=== PATIENT | female | born 1985 | race Caucasian/White ===

== ENCOUNTER → 2016-05-02 | Outpatient (REF) | payer OTHER | LOC: M SFHCWAGY 08:42 | PROVIDERS: ATTEND Nurse Practitioner Women's Health | DX: Z12.4 Encounter for screening for malignant neoplasm of cervix (principal) ==

== ENCOUNTER → 2016-05-15 | Outpatient (REF) | payer OTHER | LOC: M LAB REF 16:26 | PROVIDERS: ATTEND Nurse Practitioner Adult Health | DX: Z11.59 Encounter for screening for other viral diseases (principal) ==

== ENCOUNTER → 2017-01-24 | Outpatient (REF) | payer OTHER | LOC: M LAB REF 13:55 | PROVIDERS: ATTEND Nurse Practitioner Adult Health | DX: Z02.1 Encounter for pre-employment examination (principal) ==

== ENCOUNTER → 2017-02-11 | Outpatient (REF) | payer OTHER ==
[2017-02-11 14:17] LABS: CONTROL LINE HPYORI INT CTR LINE PRESENT
== END ==
LOC: M LAB REF 12:53
PROVIDERS: ATTEND Nurse Practitioner Adult Health
DX: K21.9 Gastro-esophageal reflux disease without esophagitis (principal)

== ENCOUNTER → 2017-10-09 | Outpatient (REF) | payer OTHER ==
[2017-10-10 04:15] LABS: CONTROL LINE HPYORI INT CTR LINE PRESENT; H PYLORI QUALITATIVE IgG NEGATIVE (NEGATIVE)
== END ==
LOC: M LAB REF 18:43
DX: K21.9 Gastro-esophageal reflux disease without esophagitis (principal)
CPT/HCPCS: 86677

== ENCOUNTER → 2018-07-31 | Outpatient (REF) | payer OTHER | LOC: M SFHCWAGY 10:28 | PROVIDERS: ATTEND Nurse Practitioner Women's Health | DX: Z12.4 Encounter for screening for malignant neoplasm of cervix (principal) ==

== ENCOUNTER → 2019-04-08 | Outpatient (REF) | payer OTHER ==
[2019-04-10 10:19] LABS: THRYOGLOBULIN ANTIBODIES (ATA) < 1.0 IU/mL (0.0-0.9); THYROGLOBULIN QUANTITATIVE 4.6 ng/mL (1.5-38.5)
== END ==
LOC: M LAB REF 16:38
PROVIDERS: ATTEND Nurse Practitioner Adult Health
DX: E89.0 Postprocedural hypothyroidism (principal)

== ENCOUNTER → 2021-01-11 | Outpatient (REF) | payer OTHER | LOC: M SFHCWAGY 13:20 | PROVIDERS: ATTEND Nurse Practitioner Women's Health | DX: Z12.4 Encounter for screening for malignant neoplasm of cervix (principal); N76.0 Acute vaginitis; B96.89 Other specified bacterial agents as the cause of diseases classified elsewhere | CPT/HCPCS: 87624; G0123 ==

== ENCOUNTER → 2022-06-12 | Outpatient (REF) | payer OTHER | LOC: M LAB REF 16:23 | PROVIDERS: ATTEND Nurse Practitioner Adult Health | DX: E89.0 Postprocedural hypothyroidism (principal) ==

== ENCOUNTER → 2022-07-13 | Outpatient (REF) | payer OTHER | LOC: M LAB REF 16:26 | PROVIDERS: ATTEND Surgery | DX: L72.3 Sebaceous cyst (principal) ==

== ENCOUNTER → 2022-08-29 | Outpatient (REF) | LOC: M EMP 11:13 | PROVIDERS: ATTEND Family Medicine | DX: Z11.52 Encounter for screening for COVID-19 (principal) ==

== ENCOUNTER → 2022-09-04 | Outpatient (REF) | LOC: M EMP 08:23 | PROVIDERS: ATTEND Family Medicine | DX: Z20.822 Contact with and (suspected) exposure to COVID-19 (principal) ==

== ENCOUNTER → 2023-01-11 | Outpatient (CLI) | payer BC ==
[2023-01-11 11:01] LABS: ESTRADIOL 143.8 PG/ML; PROGESTERONE 33.3 NG/ML
== END ==
LOC: M LAB 09:46
PROVIDERS: ATTEND Obstetrics & Gynecology Reproductive Endocrinology
DX: Z31.49 Encounter for other procreative investigation and testing (principal)

== ENCOUNTER → 2023-01-16 | Outpatient (CLI) | payer BC ==
[2023-01-16 09:05] LABS: HCG, SERUM QUANTITATIVE 7.5 MIU/ML (<4.2)
[2023-01-16 09:09] LABS: PROGESTERONE 40.99 NG/ML
== END ==
LOC: M LAB 08:14
PROVIDERS: ATTEND Obstetrics & Gynecology Reproductive Endocrinology
DX: Z32.00 Encounter for pregnancy test, result unknown (principal)

== ENCOUNTER → 2023-01-18 | Outpatient (CLI) | payer BC ==
[2023-01-18 09:56] LABS: HCG, SERUM QUANTITATIVE 18.9 MIU/ML (<4.2)
[2023-01-18 10:00] LABS: ESTRADIOL 141.9 PG/ML; PROGESTERONE 37.47 NG/ML; THYROID STIMULATING HORMONE 10.63 uIU/ML (0.55-4.78)
== END ==
LOC: M LAB 08:18
PROVIDERS: ATTEND Obstetrics & Gynecology Reproductive Endocrinology
DX: Z32.01 Encounter for pregnancy test, result positive (principal)

== ENCOUNTER → 2023-01-21 | Outpatient (CLI) | payer BC ==
[2023-01-21 10:25] LABS: HCG, SERUM QUANTITATIVE 47.2 MIU/ML (<4.2)
[2023-01-21 10:31] LABS: ESTRADIOL 109.6 PG/ML; PROGESTERONE 39.28 NG/ML
== END ==
LOC: M LAB 08:29
PROVIDERS: ATTEND Obstetrics & Gynecology Reproductive Endocrinology
DX: Z32.01 Encounter for pregnancy test, result positive (principal)

== ENCOUNTER → 2023-01-25 | Outpatient (CLI) | payer BC ==
[2023-01-25 10:23] LABS: ESTRADIOL 141.4 PG/ML
[2023-01-25 10:24] LABS: PROGESTERONE 33.71 NG/ML
== END ==
LOC: M LAB 09:11
PROVIDERS: ATTEND Obstetrics & Gynecology Reproductive Endocrinology
DX: O09.00 Supervision of pregnancy with history of infertility, unspecified trimester (principal)

== ENCOUNTER → 2023-01-28 | Outpatient (CLI) | payer BC ==
[2023-01-28 09:58] LABS: HCG, SERUM QUANTITATIVE 432.7 MIU/ML (<4.2)
[2023-01-28 10:02] LABS: ESTRADIOL 167.5 PG/ML
[2023-01-28 10:03] LABS: PROGESTERONE 35.8 NG/ML
== END ==
LOC: M LAB 08:24
PROVIDERS: ATTEND Obstetrics & Gynecology Reproductive Endocrinology
DX: Z32.01 Encounter for pregnancy test, result positive (principal)

== ENCOUNTER → 2023-02-20 | Outpatient (CLI) | payer BC | LOC: M LAB 11:52 | PROVIDERS: ATTEND Nurse Practitioner Adult Health | DX: E89.0 Postprocedural hypothyroidism (principal) ==

== ENCOUNTER → 2023-02-20 | Outpatient (CLI) | payer BC | LOC: M LAB 11:50 | PROVIDERS: ATTEND Obstetrics & Gynecology Reproductive Endocrinology | DX: Z32.01 Encounter for pregnancy test, result positive (principal) ==

== ENCOUNTER → 2023-02-27 | Outpatient (CLI) | payer BC | LOC: M LAB 12:06 | PROVIDERS: ATTEND Obstetrics & Gynecology Reproductive Endocrinology | DX: O02.1 Missed abortion (principal) ==

== ENCOUNTER → 2023-03-06 | Outpatient (CLI) | payer BC | LOC: M LAB 09:04 | PROVIDERS: ATTEND Obstetrics & Gynecology Reproductive Endocrinology | DX: O02.1 Missed abortion (principal) ==

== ENCOUNTER → 2023-03-22 | Outpatient (CLI) | payer BC | LOC: M LAB 06:38 | PROVIDERS: ATTEND Obstetrics & Gynecology Reproductive Endocrinology | DX: O02.1 Missed abortion (principal) ==

== ENCOUNTER → 2023-03-29 | Outpatient (CLI) | payer BC | LOC: M LAB 11:20 | PROVIDERS: ATTEND Obstetrics & Gynecology Reproductive Endocrinology | DX: O02.1 Missed abortion (principal) ==

== ENCOUNTER → 2023-04-08 | Outpatient (CLI) | payer BC | LOC: M LAB 13:59 | PROVIDERS: ATTEND Obstetrics & Gynecology Reproductive Endocrinology | DX: O02.1 Missed abortion (principal) ==

== ENCOUNTER → 2023-06-18 | Outpatient (CLI) | payer BC | LOC: M LAB 13:34 | PROVIDERS: ATTEND Nurse Practitioner Adult Health | DX: E89.0 Postprocedural hypothyroidism (principal) ==

== ENCOUNTER 2023-06-23 09:34 | Emergency (ER) | payer BC ==
[~2023-06-23] VITALS: Ht 162.6 cm; Wt 86.4 kg
[2023-06-23] MEDS ORDERED: LEVO175T2 PO (09:55)
[2023-06-23 10:54] LABS: BASO % 0.4 % (0.0-1.0); EOS # 0.1 10^3/uL (0.0-0.5); EOS % 0.7 % (0.0-3.0); HEMATOCRIT 40.8 % (36.0-47.0); HEMOGLOBIN 13.4 g/dl (12.0-15.5); LYMPH # 2.4 10^3/uL (1.5-5.0); LYMPH % 23.3 % (24.0-44.0); MEAN CORPUSCULAR HGB CONC 32.8 g/dl (32.0-36.5); MEAN CORPUSCULAR VOLUME 82.1 fl (80.0-96.0); MONO # 0.5 10^3/uL (0.0-0.8); MONO % 5.1 % (2.0-8.0); NEUTROPHILS # 7.3 10^3/uL (1.5-8.5); NEUTROPHILS % 70.2 % (36.0-66.0); PLATELET COUNT, AUTOMATED 379 10^3/uL (150-450); RED BLOOD COUNT 4.97 10^6/uL (4.00-5.40); WHITE BLOOD COUNT 10.4 10^3/uL (4.0-10.0)
[2023-06-23 10:58] LABS: ERYTHROCYTE SEDIMENTATION RATE 56 mm/hr (0-20)
[2023-06-23 11:04] LABS: INR 1.05; PARTIAL THROMBOPLASTIN TIME 30.9 SECONDS (24.8-34.2); PROTHROMBIN TIME 13.4 SECONDS (12.5-14.5)
[2023-06-23 11:18] LABS: CK-MB VALUE MASS < 1.0 NG/ML (<3.6); LIPASE 43 U/L (12-53)
[2023-06-23 11:20] LABS: ALKALINE PHOSPHATASE 75 U/L (46-116); ALT/SGPT 24 U/L (7.0-40); AST/SGOT 13 U/L (<34); BILIRUBIN,DIRECT 0.2 MG/DL (<0.4); BILIRUBIN,TOTAL 0.5 MG/DL (0.3-1.2); BLOOD UREA NITROGEN 10 MG/DL (9-23); CALCIUM LEVEL 9.4 MG/DL (8.5-10.1); CARBON DIOXIDE LEVEL 28 MMOL/L (20-31); CHLORIDE LEVEL 105 MMOL/L (98-107); CPK CREATINE PHOSPHOKINASE 75 U/L (34-145); CREATININE FOR GFR 0.67 MG/DL (0.55-1.30); GLOMERULAR FILTRATION RATE > 60.0 (>60); GLUCOSE, FASTING 85 MG/DL (60-100); MB/CK RELATIVE INDEX 1.33 (< OR =4); POTASSIUM SERUM 3.9 MMOL/L (3.5-5.1); SODIUM LEVEL 139 MMOL/L (136-145); TOTAL PROTEIN 7.2 G/DL (5.7-8.2)
[2023-06-23 11:22] LABS: FREE T4 1.96 NG/DL (0.89-1.76)
[2023-06-23 11:24] LABS: HCG, SERUM QUALITATIVE NEGATIVE (NEGATIVE)
[2023-06-23 11:41] LABS: MAGNESIUM LEVEL 1.9 MG/DL (1.8-2.4)
[2023-06-23] MEDS ORDERED: VITA200016 PO (11:59)
[2023-06-23] MEDS ORDERED: MULTTAB20 PO (11:59)
[2023-06-23] MEDS ORDERED: HOME MED LIST COMPLETE! XX SCH (12:00)
[2023-06-23 13:44] VITALS: BP 148/90; TEMP 97.7; O2SAT 98
== END 2023-06-23 13:52 | disposition home or self-care (01) ==
LOC: M ED 10:01
DX: R03.0 Elevated blood-pressure reading, without diagnosis of hypertension (principal); Z90.89 Acquired absence of other organs; F10.10 Alcohol abuse, uncomplicated; Z88.5 Allergy status to narcotic agent; Z79.810 Long term (current) use of selective estrogen receptor modulators (SERMs); Z79.899 Other long term (current) drug therapy

== ENCOUNTER → 2023-07-05 | Outpatient (CLI) | payer BC ==
[~2023-07-05] MED LIST: LEVO175T2 PO; MULTTAB20 PO; VITA200016 PO
[2023-07-05 10:54] LABS: FREE T4 1.46 NG/DL (0.89-1.76)
[2023-07-05 10:55] LABS: THYROID STIMULATING HORMONE 0.049 uIU/ML (0.55-4.78)
== END ==
LOC: M LAB 09:31
PROVIDERS: ATTEND Otolaryngology
DX: E03.9 Hypothyroidism, unspecified (principal)

== ENCOUNTER → 2023-07-29 | Outpatient (CLI) | payer BC ==
[2023-07-29 09:10] LABS: ESTRADIOL 110.3 PG/ML
[2023-07-29 09:11] LABS: PROGESTERONE 33.58 NG/ML
== END ==
LOC: M LAB 07:49
PROVIDERS: ATTEND Obstetrics & Gynecology Reproductive Endocrinology
DX: Z31.49 Encounter for other procreative investigation and testing (principal)

== ENCOUNTER → 2023-08-02 | Outpatient (CLI) | payer BC ==
[2023-08-02 07:42] LABS: PROGESTERONE 58.89 NG/ML
[2023-08-02 07:50] LABS: HCG, SERUM QUANTITATIVE 53.6 MIU/ML (<4.2)
== END ==
LOC: M LAB 06:16
PROVIDERS: ATTEND Obstetrics & Gynecology Reproductive Endocrinology
DX: Z32.00 Encounter for pregnancy test, result unknown (principal)

== ENCOUNTER → 2023-08-05 | Outpatient (CLI) | payer BC ==
[2023-08-05 07:37] LABS: HCG, SERUM QUANTITATIVE 236.8 MIU/ML (<4.2)
[2023-08-05 07:40] LABS: THYROID STIMULATING HORMONE 5.452 uIU/ML (0.55-4.78)
[2023-08-05 07:41] LABS: ESTRADIOL 140.6 PG/ML; PROGESTERONE 53.77 NG/ML
== END ==
LOC: M LAB 06:39
PROVIDERS: ATTEND Obstetrics & Gynecology Reproductive Endocrinology
DX: Z32.01 Encounter for pregnancy test, result positive (principal)

== ENCOUNTER → 2023-08-08 | Outpatient (CLI) | payer BC | LOC: M LAB 07:24 | PROVIDERS: ATTEND Nurse Practitioner Adult Health | DX: N91.2 Amenorrhea, unspecified (principal) ==

== ENCOUNTER → 2023-08-27 | Outpatient (CLI) | payer BC | LOC: M LAB 11:12 | PROVIDERS: ATTEND Nurse Practitioner Adult Health | DX: E89.0 Postprocedural hypothyroidism (principal) ==

== ENCOUNTER → 2023-09-11 | Outpatient (CLI) | payer BC ==
[2023-09-11 15:41] LABS: HEMATOCRIT 44.7 % (36.0-47.0); HEMOGLOBIN 14.3 g/dl (12.0-15.5); MEAN CORPUSCULAR HEMOGLOBIN 28.5 pg (27.0-33.0); PLATELET COUNT, AUTOMATED 339 10^3/uL (150-450); RED BLOOD COUNT 5.02 10^6/uL (4.00-5.40); WHITE BLOOD COUNT 22.4 10^3/uL (4.0-10.0)
[2023-09-11 16:11] LABS: THYROID STIMULATING HORMONE 0.648 uIU/ML (0.55-4.78)
[2023-09-11 16:12] LABS: FREE T4 1.34 NG/DL (0.89-1.76)
[2023-09-11 16:46] LABS: HIV 1&2 SCREEN NEGATIVE (NEGATIVE)
[2023-09-11 16:53] LABS: HEPATITIS C VIRUS ABY INDEX < 0.02 INDEX (<0.8)
[2023-09-11 17:02] LABS: GC DNA AMPLIFICATION NEGATIVE (NEGATIVE)
== END ==
LOC: M PLALAB 12:46
PROVIDERS: ATTEND Obstetrics & Gynecology
DX: Z34.91 Encounter for supervision of normal pregnancy, unspecified, first trimester (principal)

== ENCOUNTER 2023-10-15 13:18 | Emergency (ER) | payer BC ==
[~2023-10-15] VITALS: Ht 157.5 cm; Wt 95.0 kg
[2023-10-15 14:23] LABS: BASO % 0.3 % (0.0-1.0); EOS % 0.3 % (0.0-3.0); HEMOGLOBIN 12.4 g/dl (12.0-15.5); LYMPH # 2.1 10^3/uL (1.5-5.0); MEAN CORPUSCULAR HEMOGLOBIN 28.7 pg (27.0-33.0); MEAN CORPUSCULAR HGB CONC 33.5 g/dl (32.0-36.5); MEAN CORPUSCULAR VOLUME 85.6 fl (80.0-96.0); MONO # 0.4 10^3/uL (0.0-0.8); MONO % 4.3 % (2.0-8.0); NEUTROPHILS # 6.1 10^3/uL (1.5-8.5); NEUTROPHILS % 69.3 % (36.0-66.0); PLATELET COUNT, AUTOMATED 296 10^3/uL (150-450); RED BLOOD COUNT 4.32 10^6/uL (4.00-5.40); WHITE BLOOD COUNT 8.8 10^3/uL (4.0-10.0)
[2023-10-15 14:47] LABS: THYROID STIMULATING HORMONE 0.166 uIU/ML (0.55-4.78)
[2023-10-15 14:48] LABS: FREE T4 1.33 NG/DL (0.89-1.76)
[2023-10-15 14:50] LABS: BLOOD UREA NITROGEN < 5 MG/DL (9-23); CALCIUM LEVEL 9.3 MG/DL (8.5-10.1); CARBON DIOXIDE LEVEL 24 MMOL/L (20-31); CHLORIDE LEVEL 105 MMOL/L (98-107); CREATININE FOR GFR 0.57 MG/DL (0.55-1.30); GLOMERULAR FILTRATION RATE > 60.0 (>60); GLUCOSE, FASTING 95 MG/DL (60-100); POTASSIUM SERUM 3.6 MMOL/L (3.5-5.1); SODIUM LEVEL 139 MMOL/L (136-145)
[2023-10-15 16:21] LABS: HEMATOCRIT 35.6 % (36.0-47.0); HEMOGLOBIN 12.1 g/dl (12.0-15.5)
[2023-10-15 16:49] VITALS: BP 132/82; TEMP 97.1; O2SAT 98
== END 2023-10-15 16:50 | disposition home or self-care (01) ==
LOC: M ED 13:18
DX: O26.852 Spotting complicating pregnancy, second trimester (principal); Z87.42 Personal history of other diseases of the female genital tract; Z88.5 Allergy status to narcotic agent; Z3A.15 15 weeks gestation of pregnancy; Z79.899 Other long term (current) drug therapy

== ENCOUNTER → 2023-10-24 | Outpatient (CLI) | payer BC | LOC: M WHC 07:41 | PROVIDERS: ATTEND Obstetrics & Gynecology | DX: O34.42 Maternal care for other abnormalities of cervix, second trimester (principal); Z3A.16 16 weeks gestation of pregnancy ==

== ENCOUNTER → 2023-11-06 | Outpatient (CLI) | payer BC | LOC: M LAB 09:15 | PROVIDERS: ATTEND Obstetrics & Gynecology | DX: Z13.79 Encounter for other screening for genetic and chromosomal anomalies (principal) ==

== ENCOUNTER → 2023-11-27 | Outpatient (CLI) | payer BC | LOC: M WHC 13:02 | PROVIDERS: ATTEND Obstetrics & Gynecology | DX: O34.42 Maternal care for other abnormalities of cervix, second trimester (principal) ==

== ENCOUNTER → 2023-12-05 | Outpatient (CLI) | payer BC | LOC: M LAB 15:28 | PROVIDERS: ATTEND Nurse Practitioner Adult Health | DX: E89.0 Postprocedural hypothyroidism (principal) ==

== ENCOUNTER → 2024-01-06 | Outpatient (CLI) | payer BC ==
[2024-01-06 15:12] LABS: HEMATOCRIT 34.6 % (36.0-47.0); HEMOGLOBIN 11.2 g/dl (12.0-15.5); MEAN CORPUSCULAR HEMOGLOBIN 27.5 pg (27.0-33.0); MEAN CORPUSCULAR HGB CONC 32.4 g/dl (32.0-36.5); MEAN CORPUSCULAR VOLUME 84.8 fl (80.0-96.0); PLATELET COUNT, AUTOMATED 339 10^3/uL (150-450); RED BLOOD COUNT 4.08 10^6/uL (4.00-5.40); WHITE BLOOD COUNT 10.4 10^3/uL (4.0-10.0)
[2024-01-06 15:39] LABS: GLUCOSE CHALLENGE TEST 1 HOUR 180 MG/DL (LESS THAN 140)
[2024-01-06 16:10] LABS: HIV 1&2 SCREEN NEGATIVE (NEGATIVE)
[2024-01-06 16:18] LABS: HEPATITIS C VIRUS ABY INDEX 0.05 INDEX (<0.8)
[2024-01-06 16:47] LABS: GC DNA AMPLIFICATION NEGATIVE (NEGATIVE)
== END ==
LOC: M PLALAB 11:37
PROVIDERS: ATTEND Obstetrics & Gynecology
DX: O09.522 Supervision of elderly multigravida, second trimester (principal); Z3A.00 Weeks of gestation of pregnancy not specified

== ENCOUNTER → 2024-01-15 | Outpatient (CLI) | payer BC | LOC: M RAD 06:45 | PROVIDERS: ATTEND Obstetrics & Gynecology | DX: O09.812 Supervision of pregnancy resulting from assisted reproductive technology, second trimester (principal); Z3A.27 27 weeks gestation of pregnancy; O43.892 Other placental disorders, second trimester ==

== ENCOUNTER → 2024-01-15 | Outpatient (CLI) | payer BC | LOC: M LAB 08:01 | PROVIDERS: ATTEND Nurse Practitioner Adult Health | DX: E89.0 Postprocedural hypothyroidism (principal) ==

== ENCOUNTER → 2024-02-21 | Outpatient (CLI) | payer BC | LOC: M WHC 08:00 | PROVIDERS: ATTEND Obstetrics & Gynecology | DX: Z36.2 Encounter for other antenatal screening follow-up (principal); Z3A.33 33 weeks gestation of pregnancy; O32.2XX0 Maternal care for transverse and oblique lie, not applicable or unspecified ==

== ENCOUNTER 2024-03-12 19:24 | Outpatient (CLI) | payer BC ==
[~2024-03-12] VITALS: Ht 162.6 cm; Wt 101.1 kg
[2024-03-12 19:40] VITALS: BP 140/88
[2024-03-12 20:16] LABS: HEMATOCRIT 33.3 % (36.0-47.0); MEAN CORPUSCULAR VOLUME 81.8 fl (80.0-96.0); PLATELET COUNT, AUTOMATED 319 10^3/uL (150-450); RED BLOOD COUNT 4.07 10^6/uL (4.00-5.40); WHITE BLOOD COUNT 13.1 10^3/uL (4.0-10.0)
[2024-03-12 20:27] VITALS: BP 145/81; O2SAT 99
[2024-03-12] MEDS: LR 1,000 ML IV ONE ×2 (20:30→22:02)
[2024-03-12 20:45] LABS: LIPASE 63 U/L (12-53)
[2024-03-12 20:47] LABS: KETONE, URINE AUTO RFX TRACE mg/dL (NEGATIVE); LEUKOCYTE ESTERASE UR AUTO RFX TRACE (NEGATIVE)
[2024-03-12 20:47] LABS: ALBUMIN 2.6 G/DL (3.2-5.2); ALKALINE PHOSPHATASE 166 U/L (35-104); ALT/SGPT 18 U/L (7.0-40); AMYLASE 81 U/L (30-118); AST/SGOT 18 U/L (<34); BILIRUBIN,TOTAL 0.3 MG/DL (0.3-1.2); BLOOD UREA NITROGEN 7 MG/DL (9-23); CALCIUM LEVEL 8.7 MG/DL (8.5-10.1); CARBON DIOXIDE LEVEL 22 MMOL/L (20-31); CHLORIDE LEVEL 106 MMOL/L (98-107); GLOMERULAR FILTRATION RATE > 60.0 (>60); GLUCOSE, FASTING 111 MG/DL (60-100); POTASSIUM SERUM 3.7 MMOL/L (3.5-5.1); SODIUM LEVEL 139 MMOL/L (136-145)
[2024-03-12 21:08] LABS: TOTAL PROTEIN,RANDOM URINE 34.5 MG/DL (0.0-14.0)
[2024-03-12 21:27] LABS: CREATININE,RANDOM URINE 295.5 MG/DL
[2024-03-12 21:49] VITALS: BP 186/81
[2024-03-12 22:02] VITALS: BP 163/77
[2024-03-12 22:09] VITALS: BP 149/86
[2024-03-12 22:27] VITALS: BP 157/78
[2024-03-12] MEDS: ursodioL 300MG CAP PO SCH (22:27)
[2024-03-12] MEDS: traMADol 50 MG TAB PO ONE (22:41)
[2024-03-12] MEDS: AMOXICILLIN 500 MG CAP PO SCH (23:00)
[2024-03-12] MEDS ORDERED: ONDANSETRON 4MG 2ML VIAL IV PRN (23:00)
[2024-03-13] MEDS ORDERED: METF500T13 PO (23:38)
[2024-03-13] MEDS ORDERED: COLA100C5 PO (23:40)
[2024-03-13] MEDS ORDERED: FAMO20TA PO (23:40)
[2024-03-13] MEDS ORDERED: ECOT81TA5 PO (23:40)
[2024-03-16] MEDS ORDERED: LEVO200T4 PO (11:14)
[2024-03-16] MEDS ORDERED: URSO300C3 PO (11:14)
[2024-03-16] MEDS ORDERED: AMOX500T PO (11:14)
== END 2024-03-12 23:25 | disposition home or self-care (01) ==
LOC: M LDO 19:24
PROVIDERS: ATTEND Obstetrics & Gynecology
DX: O99.63 Diseases of the digestive system complicating the puerperium (principal); O13.3 Gestational [pregnancy-induced] hypertension without significant proteinuria, third trimester; O09.813 Supervision of pregnancy resulting from assisted reproductive technology, third trimester; O24.415 Gestational diabetes mellitus in pregnancy, controlled by oral hypoglycemic drugs; O09.523 Supervision of elderly multigravida, third trimester; O09.293 Supervision of pregnancy with other poor reproductive or obstetric history, third trimester; K80.20 Calculus of gallbladder without cholecystitis without obstruction; Z3A.36 36 weeks gestation of pregnancy
CPT/HCPCS: 59025; 76705; 76815; 80053; 81001; 82150; 82570; 83690; 84156; 85027; 87086; G0463

== ENCOUNTER 2024-03-13 23:17 | Outpatient (CLI) | payer BC ==
[~2024-03-13] VITALS: Ht 162.6 cm; Wt 101.6 kg
[~2024-03-13 23:17] MED LIST changes: -COLA100C5 PO; -ECOT81TA5 PO; -FAMO20TA PO; -METF500T13 PO
[2024-03-13 23:33] VITALS: BP 176/86
[2024-03-13] MEDS ORDERED: METF500T13 PO (23:38)
[2024-03-13] MEDS ORDERED: ECOT81TA5 PO (23:40)
[2024-03-13] MEDS ORDERED: COLA100C5 PO (23:40)
[2024-03-13] MEDS ORDERED: FAMO20TA PO (23:40)
[2024-03-13 23:44] VITALS: BP 154/73
[2024-03-13 23:59] VITALS: BP 155/75
[2024-03-14 00:14] VITALS: BP 154/75
[2024-03-14] MEDS: MORPHINE 2 MG/ML 1ML VIAL IV PRN (00:45)
[2024-03-14] MEDS: LR 1,000 ML IV SCH (00:47)
[2024-03-14] MEDS: ursodioL 300MG CAP PO SCH (00:55)
[2024-03-14 01:09] LABS: HEMATOCRIT 33.9 % (36.0-47.0); HEMOGLOBIN 11.2 g/dl (12.0-15.5); MEAN CORPUSCULAR HEMOGLOBIN 27.4 pg (27.0-33.0); MEAN CORPUSCULAR VOLUME 82.9 fl (80.0-96.0); PLATELET COUNT, AUTOMATED 291 10^3/uL (150-450); RED BLOOD COUNT 4.09 10^6/uL (4.00-5.40); WHITE BLOOD COUNT 12.7 10^3/uL (4.0-10.0)
[2024-03-14 01:11] LABS: ALBUMIN 2.4 G/DL (3.2-5.2); BILIRUBIN,DIRECT 0.1 MG/DL (<0.4); BILIRUBIN,TOTAL 0.4 MG/DL (0.3-1.2); TOTAL PROTEIN 5.8 G/DL (5.7-8.2)
[2024-03-14 01:12] VITALS: BP 146/81
[2024-03-16] MEDS ORDERED: LEVO200T4 PO (11:14)
[2024-03-16] MEDS ORDERED: URSO300C3 PO (11:14)
[2024-03-16] MEDS ORDERED: AMOX500T PO (11:14)
== END 2024-03-14 03:58 | disposition home or self-care (01) ==
LOC: M LDO 23:17
PROVIDERS: ATTEND Advanced Practice Midwife
DX: O99.63 Diseases of the digestive system complicating the puerperium (principal); O26.613 Liver and biliary tract disorders in pregnancy, third trimester; O09.813 Supervision of pregnancy resulting from assisted reproductive technology, third trimester; O24.415 Gestational diabetes mellitus in pregnancy, controlled by oral hypoglycemic drugs; O09.523 Supervision of elderly multigravida, third trimester; O09.293 Supervision of pregnancy with other poor reproductive or obstetric history, third trimester; O99.283 Endocrine, nutritional and metabolic diseases complicating pregnancy, third trimester; K80.70 Calculus of gallbladder and bile duct without cholecystitis without obstruction; E89.0 Postprocedural hypothyroidism; Z3A.36 36 weeks gestation of pregnancy
CPT/HCPCS: 59025; 80076; 83690; 85027; 96374; G0463

== ENCOUNTER → 2024-03-13 | Outpatient (REF) | payer BC ==
[~2024-03-13] MED LIST changes: +COLA100C5 PO; +ECOT81TA5 PO; +FAMO20TA PO; +METF500T13 PO
== END ==
LOC: M SFHCWAGY 12:29
PROVIDERS: ATTEND Specialist
DX: Z34.83 Encounter for supervision of other normal pregnancy, third trimester (principal)

== ENCOUNTER 2024-03-20 05:20 | Inpatient (IN) | payer BC ==
[2024-03-20] VITALS (9 sets, daily range): BP systolic 97–167; BP diastolic 56–85; O2SAT 98–100
[~2024-03-20] VITALS: Ht 162.6 cm; Wt 100.2 kg
[~2024-03-20 05:20] MED LIST changes: +AMOX500T PO; +COLA100C5 PO; +ECOT81TA5 PO; +FAMO20TA PO; +LEVO200T4 PO; +METF500T13 PO; +URSO300C3 PO
[2024-03-20] MEDS ORDERED: HOME MED LIST COMPLETE! XX SCH (05:40)
[2024-03-20] MEDS: LR 1,000 ML IV ONE ×2 (06:44→19:40)
[2024-03-20 06:49] LABS: HEMATOCRIT 34.3 % (36.0-47.0); MEAN CORPUSCULAR HGB CONC 32.1 g/dl (32.0-36.5); MEAN CORPUSCULAR VOLUME 81.1 fl (80.0-96.0); PLATELET COUNT, AUTOMATED 296 10^3/uL (150-450); RED BLOOD COUNT 4.23 10^6/uL (4.00-5.40); WHITE BLOOD COUNT 11.4 10^3/uL (4.0-10.0)
[2024-03-20] MEDS ORDERED: ONDANSETRON 4MG 2ML VIAL As Ordered ONE (07:17)
[2024-03-20] MEDS ORDERED: PHENYLephrine 500MCG 5ML (100MCG/ML) SYRINGE As Ordered ONE (07:18)
[2024-03-20] MEDS ORDERED: KETOROLAC 60MG 2ML VIAL As Ordered ONE (07:18)
[2024-03-20] MEDS ORDERED: MORPHINE PRES-FREE INJ 10 MG/10 ML VIAL As Ordered ONE (07:18)
[2024-03-20] MEDS: BICITRA 30ML SOLN UDC PO ONE (07:30)
[2024-03-20] MEDS: ceFAZolin SOD 2 GM in IV 1 EA IV ONE (07:30)
[2024-03-20] MEDS ORDERED: ePHEDrine SULFATE 25 MG/5 ML(5MG/ML) SYRINGE As Ordered ONE (08:20)
[2024-03-20 08:48] LABS: HEPATITIS C VIRUS ABY INDEX < 0.02 INDEX (<0.8)
[2024-03-20] MEDS: LR 1,000 ML IV SCH ×2 (08:50→09:10)
[2024-03-20] MEDS ORDERED: CALCIUM CARBONATE 500 MG CHEW U/D PO PRN (08:50)
[2024-03-20] MEDS ORDERED: ANUSOL HC CREAM 30GM TOP PRN (08:50)
[2024-03-20] MEDS ORDERED: METHYLERGONOVINE MALEATE 0.2 MG TAB PO PRN (08:50)
[2024-03-20] MEDS ORDERED: RHOGAM 300MCG (1500IU) INJ IM SCH ×2 (08:50→08:55)
[2024-03-20] MEDS ORDERED: DIBUCAINE 1% OINTMENT 30GM TOP PRN (08:50)
[2024-03-20] MEDS ORDERED: DOCUSATE SODIUM 100MG CAPSULE PO PRN (08:50)
[2024-03-20] MEDS ORDERED: PERCOCET 5MG/325MG TAB PO PRN ×2 (08:55)
[2024-03-20] MEDS ORDERED: MORPHINE 4 MG/ML 1ML VIAL IV PRN (08:55)
[2024-03-20] MEDS: DOCUSATE SODIUM 100MG CAPSULE PO SCH (09:00)
[2024-03-20] MEDS: PRENATAL VITAMINS CHEWABLE TABLET PO SCH (09:00)
[2024-03-20] MEDS ORDERED: METOCLOPRAMIDE INJ 10MG/2ML VIAL As Ordered ONE (09:09)
[2024-03-20] MEDS ORDERED: diphenhydrAMINE 50MG/ML VIAL IV PRN (09:10)
[2024-03-20] MEDS ORDERED: fentaNYL 100 MCG/2 ML INJECTION IV PRN (09:10)
[2024-03-20] MEDS ORDERED: ONDANSETRON 4MG 2ML VIAL IV PRN (09:10)
[2024-03-20] MEDS ORDERED: NALOXONE INJ 0.4MG/1ML VIAL IV PRN ×2 (09:10)
[2024-03-20] MEDS: SLF 3 ML SYR IV SCH (09:10)
[2024-03-20] MEDS ORDERED: **NOTE PATIENT COMMENT** MISC XX SCH (09:10)
[2024-03-20] MEDS ORDERED: oxyCODONE 5MG TAB PO PRN (09:10)
[2024-03-20] MEDS: METOCLOPRAMIDE INJ 10MG/2ML VIAL IV PRN (09:14)
[2024-03-20] MEDS: OXYTOCIN DRIP 30 UNITS in IV 1 EA IV SCH (09:15)
[2024-03-20] MEDS: ACETAMINOPHEN 325 MG TAB PO PRN (11:23)
[2024-03-20] MEDS ORDERED: LEVO200T4 PO (12:51)
[2024-03-20] MEDS ORDERED: LEVO175T2 PO (12:51)
[2024-03-20] MEDS: KETOROLAC 30 MG/ML 1ML VIAL IV SCH (15:23)
[2024-03-20] MEDS: ONDANSETRON 4MG 2ML VIAL IV PRN (15:24)
[2024-03-20] MEDS ORDERED: IBUPROFEN 800 MG TAB PO PRN (17:00)
[2024-03-20] MEDS ORDERED: IBUPROFEN 600MG TAB PO PRN (17:00)
[2024-03-20] MEDS: ursodioL 300MG CAP PO SCH (20:20)
[2024-03-20] MEDS: AMOXICILLIN 500 MG CAP PO SCH (20:20)
[2024-03-21] VITALS (7 sets, daily range): BP systolic 110–152; BP diastolic 61–84; TEMP 96.7; O2SAT 97–100
[2024-03-21] MEDS: LEVOTHYROXINE 100MCG TABLET (0.1MG) PO SCH (05:15)
[2024-03-21] MEDS: LEVOTHYROXINE 75MCG TABLET (0.075MG) PO SCH (05:27)
[2024-03-21] MEDS: IBUPROFEN 800 MG TAB PO PRN (09:41)
[2024-03-21] MEDS: ACETAMINOPHEN 500 MG TAB PO PRN (14:55)
[2024-03-21] MEDS ORDERED: PERCOCET PO (15:08)
[2024-03-21] MEDS ORDERED: IBUP80TA PO (15:08)
[2024-03-21] MEDS ORDERED: COLA100C5 PO (15:08)
[2024-03-21] MEDS: oxyCODONE 5MG TAB PO ONE (16:30)
[2024-03-21 17:02] LABS: HEMATOCRIT 32.1 % (36.0-47.0); HEMOGLOBIN 10.5 g/dl (12.0-15.5); MEAN CORPUSCULAR HEMOGLOBIN 27.1 pg (27.0-33.0); MEAN CORPUSCULAR HGB CONC 32.7 g/dl (32.0-36.5); MEAN CORPUSCULAR VOLUME 82.7 fl (80.0-96.0); PLATELET COUNT, AUTOMATED 334 10^3/uL (150-450); RED BLOOD COUNT 3.88 10^6/uL (4.00-5.40); WHITE BLOOD COUNT 12.3 10^3/uL (4.0-10.0)
[2024-03-21 17:29] LABS: LIPASE 64 U/L (12-53)
[2024-03-21 17:30] LABS: AMYLASE 71 U/L (30-118)
[2024-03-21 17:31] LABS: ALBUMIN 2.4 G/DL (3.2-5.2); ALKALINE PHOSPHATASE 146 U/L (35-104); ALT/SGPT 14 U/L (7.0-40); AST/SGOT 20 U/L (<34); BILIRUBIN,TOTAL 0.2 MG/DL (0.3-1.2); BLOOD UREA NITROGEN 6 MG/DL (9-23); CALCIUM LEVEL 9.4 MG/DL (8.5-10.1); CARBON DIOXIDE LEVEL 26 MMOL/L (20-31); CHLORIDE LEVEL 108 MMOL/L (98-107); GLOMERULAR FILTRATION RATE > 60.0 (>60); GLUCOSE, FASTING 109 MG/DL (60-100); POTASSIUM SERUM 4.4 MMOL/L (3.5-5.1); SODIUM LEVEL 140 MMOL/L (136-145); TOTAL PROTEIN 5.6 G/DL (5.7-8.2)
[2024-03-21] MEDS: KETOROLAC 30 MG/ML 1ML VIAL IM ONE (17:55)
[2024-03-22 02:00] VITALS: BP 147/85; O2SAT 99
[2024-03-22 06:00] VITALS: BP 144/77; O2SAT 100
[2024-03-22] MEDS: LEVOTHYROXINE 100MCG TABLET (0.1MG) PO SCH (06:10)
[2024-03-22] MEDS: MEASLES,MUMPS,RUBELLA VACCINE INJ (MMR-II) SC.IMMUN ONE (08:32)
[2024-03-22] MEDS: IBUPROFEN 600MG TAB PO PRN (10:07)
== END 2024-03-22 12:23 | disposition home or self-care (01) | DRG 540 ==
LOC: M LDI 05:20 → M OBS 10:02
PROVIDERS: ADMIT Obstetrics & Gynecology; ATTEND Obstetrics & Gynecology
PROC: 10D00Z1 Extraction of Products of Conception, Low, Open Approach (ICD-10-PCS; principal; 2024-03-20 07:30)
DX: O32.1XX0 Maternal care for breech presentation, not applicable or unspecified (principal); O24.425 Gestational diabetes mellitus in childbirth, controlled by oral hypoglycemic drugs; K80.20 Calculus of gallbladder without cholecystitis without obstruction; Z37.0 Single live birth; Z3A.37 37 weeks gestation of pregnancy; O09.523 Supervision of elderly multigravida, third trimester; Z85.850 Personal history of malignant neoplasm of thyroid; Z79.899 Other long term (current) drug therapy; O13.4 Gestational [pregnancy-induced] hypertension without significant proteinuria, complicating childbirth; O09.813 Supervision of pregnancy resulting from assisted reproductive technology, third trimester; O99.62 Diseases of the digestive system complicating childbirth; Z88.8 Allergy status to other drugs, medicaments and biological substances

== ENCOUNTER 2024-05-12 08:31 | Emergency (ER) | payer BC ==
[~2024-05-12] VITALS: Ht 162.6 cm; Wt 85.2 kg
[~2024-05-12 08:31] MED LIST changes: +IBUP80TA PO; +PERCOCET PO
[2024-05-12 11:57] LABS: BASO # 0.1 10^3/uL (0.0-0.2); BASO % 0.6 % (0.0-1.0); EOS # 0.3 10^3/uL (0.0-0.5); EOS % 3.2 % (0.0-3.0); HEMATOCRIT 43.1 % (36.0-47.0); HEMOGLOBIN 13.2 g/dl (12.0-15.5); LYMPH # 1.9 10^3/uL (1.5-5.0); LYMPH % 22.9 % (24.0-44.0); MEAN CORPUSCULAR HEMOGLOBIN 24.3 pg (27.0-33.0); MEAN CORPUSCULAR HGB CONC 30.6 g/dl (32.0-36.5); MEAN CORPUSCULAR VOLUME 79.2 fl (80.0-96.0); MONO # 0.3 10^3/uL (0.0-0.8); NEUTROPHILS # 5.9 10^3/uL (1.5-8.5); NEUTROPHILS % 70.1 % (36.0-66.0); PLATELET COUNT, AUTOMATED 419 10^3/uL (150-450); RED BLOOD COUNT 5.44 10^6/uL (4.00-5.40); WHITE BLOOD COUNT 8.4 10^3/uL (4.0-10.0)
[2024-05-12 12:25] LABS: LIPASE 31 U/L (12-53)
[2024-05-12 12:27] LABS: ALKALINE PHOSPHATASE 120 U/L (35-104); ALT/SGPT 22 U/L (7.0-40); AST/SGOT 13 U/L (<34); BILIRUBIN,DIRECT 0.2 MG/DL (<0.4); BILIRUBIN,TOTAL 0.5 MG/DL (0.3-1.2); TOTAL PROTEIN 7.8 G/DL (5.7-8.2)
[2024-05-12 12:29] LABS: HCG, SERUM QUALITATIVE NEGATIVE (NEGATIVE)
[2024-05-12 16:15] VITALS: BP 146/91; TEMP 97.5; O2SAT 99
== END 2024-05-12 16:23 | disposition home or self-care (01) ==
LOC: M ED 08:31
DX: N20.0 Calculus of kidney (principal); K80.66 Calculus of gallbladder and bile duct with acute and chronic cholecystitis without obstruction; E06.3 Autoimmune thyroiditis; Z87.19 Personal history of other diseases of the digestive system; Z88.5 Allergy status to narcotic agent; Z79.2 Long term (current) use of antibiotics; Z79.82 Long term (current) use of aspirin; Z79.4 Long term (current) use of insulin; Z79.899 Other long term (current) drug therapy

== ENCOUNTER → 2024-05-14 | Outpatient (CLI) | payer BC ==
[~2024-05-14] MED LIST changes: +ACET-683 PO; +DOCU100C17 PO; +OXYC1TAB23 PO; +TRAM50TA2 PO
[2024-05-14 16:10] LABS: THYROID STIMULATING HORMONE 0.253 uIU/ML (0.55-4.78); THYROXINE (T4) 11.5 UG/DL (4.5-10.9)
[2024-05-14 16:18] LABS: FREE THYROXINE INDEX 3.5 % (1.3-4.8); T UPTAKE 30.2 % (22.5-37.0)
== END ==
LOC: M PLALAB 12:24
PROVIDERS: ATTEND Obstetrics & Gynecology
DX: E03.8 Other specified hypothyroidism (principal)

== ENCOUNTER 2024-05-16 16:16 | Inpatient (IN) | payer BC ==
[~2024-05-16] VITALS: Ht 162.6 cm; Wt 82.5 kg
[~2024-05-16 16:16] MED LIST changes: -ACET-683 PO; -DOCU100C17 PO; -OXYC1TAB23 PO; -TRAM50TA2 PO
[2024-05-16 17:00] LABS: BASO % 0.4 % (0.0-1.0); EOS # 0.2 10^3/uL (0.0-0.5); EOS % 1.8 % (0.0-3.0); HEMATOCRIT 38.2 % (36.0-47.0); LYMPH # 1.5 10^3/uL (1.5-5.0); LYMPH % 13.4 % (24.0-44.0); MEAN CORPUSCULAR HEMOGLOBIN 24.3 pg (27.0-33.0); MEAN CORPUSCULAR HGB CONC 31.4 g/dl (32.0-36.5); MEAN CORPUSCULAR VOLUME 77.3 fl (80.0-96.0); MONO # 0.6 10^3/uL (0.0-0.8); MONO % 5.4 % (2.0-8.0); NEUTROPHILS # 8.9 10^3/uL (1.5-8.5); NEUTROPHILS % 78.6 % (36.0-66.0); PLATELET COUNT, AUTOMATED 501 10^3/uL (150-450); RED BLOOD COUNT 4.94 10^6/uL (4.00-5.40); WHITE BLOOD COUNT 11.3 10^3/uL (4.0-10.0)
[2024-05-16 17:15] LABS: LIPASE 32 U/L (12-53)
[2024-05-16 17:17] LABS: ALBUMIN 3.8 G/DL (3.2-5.2); ALKALINE PHOSPHATASE 278 U/L (35-104); ALT/SGPT 130 U/L (7.0-40); AST/SGOT 96 U/L (<34); BILIRUBIN,DIRECT 0.2 MG/DL (<0.4); BILIRUBIN,TOTAL 0.6 MG/DL (0.3-1.2); BLOOD UREA NITROGEN 7 MG/DL (9-23); CALCIUM LEVEL 9.2 MG/DL (8.5-10.1); CARBON DIOXIDE LEVEL 26 MMOL/L (20-31); CHLORIDE LEVEL 102 MMOL/L (98-107); CREATININE FOR GFR 0.71 MG/DL (0.55-1.30); GLOMERULAR FILTRATION RATE > 60.0 (>60); GLUCOSE, FASTING 119 MG/DL (60-100); POTASSIUM SERUM 3.9 MMOL/L (3.5-5.1); SODIUM LEVEL 141 MMOL/L (136-145); TOTAL PROTEIN 7.6 G/DL (5.7-8.2)
[2024-05-16] MEDS: ONDANSETRON 4MG 2ML VIAL IV ONE (17:18)
[2024-05-16] MEDS: MORPHINE 4 MG/ML 1ML VIAL IV PRN ×2 (17:18→19:12)
[2024-05-16] MEDS: NS (Normal Saline) 0.9% 1,000 ML IV ONE (17:18)
[2024-05-16] MEDS ORDERED: OXYC1TAB23 PO (18:38)
[2024-05-16] MEDS ORDERED: IBUP80TA PO (18:38)
[2024-05-16] MEDS ORDERED: DOCU100C17 PO (18:38)
[2024-05-16] MEDS ORDERED: TRAM50TA2 PO (18:38)
[2024-05-16] MEDS: AMPICILLIN SOD/SULBACTAM SOD 1.5 GM in DEXTROSE 5% (D5W) ADV/MINI-BAG 50 ML IV ONE (18:39)
[2024-05-16] MEDS ORDERED: HOME MED LIST COMPLETE! XX SCH (18:40)
[2024-05-16] MEDS ORDERED: ACET-683 PO (18:43)
[2024-05-16] MEDS ORDERED: MAALOX 30 ML SUSP *UDC PO PRN (19:35)
[2024-05-16] MEDS ORDERED: MOM 30ML SUSPENSION UDC PO PRN (19:35)
[2024-05-16] MEDS ORDERED: ACETAMINOPHEN 325 MG TAB PO PRN (19:35)
[2024-05-16] MEDS: DOCUSATE SODIUM 100MG CAPSULE PO SCH (20:10)
[2024-05-16] MEDS: NS (Normal Saline) 0.9% 1,000 ML IV SCH (20:22)
[2024-05-16] MEDS: KETOROLAC 30 MG/ML 1ML VIAL IV PRN (20:22)
[2024-05-16] MEDS: ONDANSETRON 4MG 2ML VIAL IV PRN (20:22)
[2024-05-16 20:39] LABS: KETONE, URINE AUTO RFX 1+ mg/dL (NEGATIVE); MUCUS, URINE RFX SMALL (NEGATIVE); NITRITE, URINE AUTO RFX NEGATIVE (NEGATIVE); RBC, URINE AUTO RFX 1 /HPF (0-3); SQUAM EPITHELIAL CELL UR AURFX 8 /HPF (0-6); WBC, URINE AUTO RFX 6 /HPF (0-3)
[2024-05-16 20:43] LABS: LEUKOCYTE ESTERASE UR AUTO RFX 1+ (NEGATIVE)
[2024-05-16 22:00] VITALS: BP 146/76; TEMP 98; O2SAT 100
[2024-05-17] VITALS (11 sets, daily range): BP systolic 120–150; BP diastolic 62–85; TEMP 96.9–98.8; O2SAT 95–100
[2024-05-17] MEDS: AMPICILLIN SOD/SULBACTAM SOD 3 GM in DEXTROSE 5% (D5W) MINI-BAG PLU 100 ML IV SCH (00:59)
[2024-05-17] MEDS: LEVOTHYROXINE 100MCG TABLET (0.1MG) PO SCH (04:51)
[2024-05-17] MEDS: MORPHINE 2 MG/ML 1ML VIAL IV PRN (05:54)
[2024-05-17 06:49] LABS: HEMATOCRIT 31.1 % (36.0-47.0); MEAN CORPUSCULAR HEMOGLOBIN 24.7 pg (27.0-33.0); MEAN CORPUSCULAR HGB CONC 31.5 g/dl (32.0-36.5); MEAN CORPUSCULAR VOLUME 78.5 fl (80.0-96.0); RED BLOOD COUNT 3.96 10^6/uL (4.00-5.40); WHITE BLOOD COUNT 10.3 10^3/uL (4.0-10.0)
[2024-05-17 06:51] LABS: HEMOGLOBIN 9.8 g/dl (12.0-15.5); PLATELET COUNT, AUTOMATED 382 10^3/uL (150-450)
[2024-05-17 07:25] LABS: ALBUMIN 2.8 G/DL (3.2-5.2); ALKALINE PHOSPHATASE 184 U/L (35-104); ALT/SGPT 72 U/L (7.0-40); AST/SGOT 32 U/L (<34); BILIRUBIN,TOTAL 0.5 MG/DL (0.3-1.2); BLOOD UREA NITROGEN 6 MG/DL (9-23); CALCIUM LEVEL 8.2 MG/DL (8.5-10.1); CARBON DIOXIDE LEVEL 23 MMOL/L (20-31); CHLORIDE LEVEL 107 MMOL/L (98-107); CREATININE FOR GFR 0.66 MG/DL (0.55-1.30); GLOMERULAR FILTRATION RATE > 60.0 (>60); GLUCOSE, FASTING 85 MG/DL (60-100); MAGNESIUM LEVEL 1.8 MG/DL (1.8-2.4); SODIUM LEVEL 142 MMOL/L (136-145)
[2024-05-17] MEDS: LIDOCAINE 1% SDV 30ML VIAL As Ordered ONE (07:42)
[2024-05-17] MEDS ORDERED: MIDAZOLAM INJ 2MG/2ML VIAL As Ordered ONE (08:34)
[2024-05-17] MEDS ORDERED: propofoL 200 MG/20 ML VIAL As Ordered ONE (08:34)
[2024-05-17] MEDS ORDERED: ACETAMINOPHEN 1000MG/100ML IV BAG As Ordered ONE (08:34)
[2024-05-17] MEDS ORDERED: ROCURONIUM BROMIDE 50MG/5ML VIAL As Ordered ONE (08:34)
[2024-05-17] MEDS ORDERED: ONDANSETRON 4MG 2ML VIAL As Ordered ONE (08:34)
[2024-05-17] MEDS ORDERED: fentaNYL 250 MCG/5 ML INJECTION As Ordered ONE (08:34)
[2024-05-17] MEDS ORDERED: LIDOCAINE 2% 100MG/5ML SDV (FOR ANES.) As Ordered ONE (08:34)
[2024-05-17] MEDS ORDERED: INDOCYANINE GREEN 25MG VIAL (IC-GREEN) As Ordered ONE (08:34)
[2024-05-17] MEDS ORDERED: SUGAMMADEX SODIUM 500 MG/5 ML VIAL (BRIDION) As Ordered ONE (08:34)
[2024-05-17] MEDS ORDERED: dexmedeTOMIDine (4MCG/ML)200MCG/50ML BTL (PRECEDEX) As Ordered ONE (08:55)
[2024-05-17] MEDS: PANTOPRAZOLE 40MG VIAL IV SCH (09:00)
[2024-05-17] MEDS ORDERED: KETOROLAC 60MG 2ML VIAL As Ordered ONE (09:06)
[2024-05-17] MEDS ORDERED: ESMOLOL INJ 100MG/10ML VIAL As Ordered ONE (09:07)
[2024-05-17] MEDS ORDERED: LACRILUBE (AKWA TEARS) OPHTH OINT 3.5GM As Ordered ONE (10:38)
[2024-05-17] MEDS ORDERED: PERCOCET 5MG/325MG TAB PO PRN ×2 (11:00)
[2024-05-17] MEDS: ONDANSETRON 4MG 2ML VIAL IV PRN (11:32)
[2024-05-17] MEDS: METOCLOPRAMIDE INJ 10MG/2ML VIAL IV PRN (11:39)
[2024-05-17] MEDS: KETOROLAC 30 MG/ML 1ML VIAL IV SCH (12:39)
[2024-05-17] MEDS: KETOROLAC TROMETHAMINE 10 MG TAB PO SCH (20:32)
[2024-05-18 00:48] VITALS: BP 124/75; TEMP 97.8; O2SAT 98
[2024-05-18 04:05] VITALS: BP 126/68; TEMP 98; O2SAT 99
[2024-05-18 05:15] VITALS: O2SAT 94
[2024-05-18] MEDS: LEVOTHYROXINE 100MCG TABLET (0.1MG) PO SCH (05:33)
[2024-05-18] MEDS: LEVOTHYROXINE 75MCG TABLET (0.075MG) PO SCH (05:33)
[2024-05-18 07:36] LABS: BASO % 0.6 % (0.0-1.0); EOS # 0.1 10^3/uL (0.0-0.5); EOS % 0.7 % (0.0-3.0); HEMATOCRIT 29.5 % (36.0-47.0); HEMOGLOBIN 9.2 g/dl (12.0-15.5); LYMPH # 2.4 10^3/uL (1.5-5.0); LYMPH % 33.8 % (24.0-44.0); MEAN CORPUSCULAR HEMOGLOBIN 24.1 pg (27.0-33.0); MEAN CORPUSCULAR HGB CONC 31.2 g/dl (32.0-36.5); MEAN CORPUSCULAR VOLUME 77.2 fl (80.0-96.0); MONO # 0.4 10^3/uL (0.0-0.8); MONO % 5.8 % (2.0-8.0); NEUTROPHILS # 4.2 10^3/uL (1.5-8.5); NEUTROPHILS % 58.7 % (36.0-66.0); PLATELET COUNT, AUTOMATED 374 10^3/uL (150-450); RED BLOOD COUNT 3.82 10^6/uL (4.00-5.40); WHITE BLOOD COUNT 7.1 10^3/uL (4.0-10.0)
[2024-05-18 08:00] VITALS: BP 133/72; TEMP 97.8; O2SAT 97
[2024-05-18 08:04] LABS: ALBUMIN 2.5 G/DL (3.2-5.2); ALKALINE PHOSPHATASE 135 U/L (35-104); ALT/SGPT 42 U/L (7.0-40); AST/SGOT 14 U/L (<34); BILIRUBIN,TOTAL 0.3 MG/DL (0.3-1.2); BLOOD UREA NITROGEN 8 MG/DL (9-23); CARBON DIOXIDE LEVEL 26 MMOL/L (20-31); CHLORIDE LEVEL 105 MMOL/L (98-107); CREATININE FOR GFR 0.55 MG/DL (0.55-1.30); GLOMERULAR FILTRATION RATE > 60.0 (>60); GLUCOSE, FASTING 87 MG/DL (60-100); POTASSIUM SERUM 3.5 MMOL/L (3.5-5.1); SODIUM LEVEL 142 MMOL/L (136-145); TOTAL PROTEIN 5.4 G/DL (5.7-8.2)
[2024-05-18] MEDS ORDERED: AMOX875T2 PO (09:35)
== END 2024-05-18 10:40 | disposition home or self-care (01) | DRG 263 ==
LOC: M ED 16:16 → M ED INP 19:32 → M MS4PR 22:13
PROVIDERS: ADMIT Family Medicine; ATTEND Family Medicine
PROC: 0FT44ZZ Resection of Gallbladder, Percutaneous Endoscopic Approach (ICD-10-PCS; principal; 2024-05-17 08:00)
DX: K81.0 Acute cholecystitis (principal); I10 Essential (primary) hypertension; Z85.850 Personal history of malignant neoplasm of thyroid; Z88.5 Allergy status to narcotic agent; Z79.899 Other long term (current) drug therapy; Z79.890 Hormone replacement therapy

== ENCOUNTER → 2024-12-10 | Outpatient (CLI) | payer BC ==
[~2024-12-10] MED LIST changes: +ACET-683 PO; +AMOX875T2 PO; +DOCU100C17 PO; +OXYC1TAB23 PO; +TRAM50TA2 PO
[2024-12-10 13:07] LABS: BASO # 0.1 10^3/uL (0.0-0.2); BASO % 0.6 % (0.0-1.0); EOS # 0.1 10^3/uL (0.0-0.5); EOS % 1.1 % (0.0-3.0); LYMPH # 2.7 10^3/uL (1.5-5.0); LYMPH % 30.9 % (24.0-44.0); MONO # 0.4 10^3/uL (0.0-0.8); MONO % 4.6 % (2.0-8.0); NEUTROPHILS # 5.5 10^3/uL (1.5-8.5); NEUTROPHILS % 62.6 % (36.0-66.0); PLATELET COUNT, AUTOMATED 382 10^3/uL (150-450)
[2024-12-10 13:40] LABS: ALT/SGPT 20 U/L (7.0-40); AST/SGOT 14 U/L (<34); CALCIUM LEVEL 9.7 MG/DL (8.5-10.1); CARBON DIOXIDE LEVEL 28 MMOL/L (20-31); CHLORIDE LEVEL 103 MMOL/L (98-107); CREATININE FOR GFR 0.72 MG/DL (0.55-1.30); GLOMERULAR FILTRATION RATE > 90.0 (>58); POTASSIUM SERUM 4.2 MMOL/L (3.5-5.1); SODIUM LEVEL 140 MMOL/L (136-145)
[2024-12-10 13:43] LABS: FREE T4 1.66 NG/DL (0.89-1.76)
[2024-12-10 13:45] LABS: THYROGLOBULIN ANTIBODY 27.0 U/ML (<60.0)
== END ==
LOC: M LAB 11:36
PROVIDERS: ATTEND Nurse Practitioner Adult Health
DX: E89.0 Postprocedural hypothyroidism (principal)

== ENCOUNTER → 2025-01-05 | Outpatient (REF) | payer BC ==
[2025-01-07 14:37] LABS: HPV APTIMA Not Detected (Not Detected)
== END ==
LOC: M SFHCWAGY 13:16
PROVIDERS: ATTEND Student in an Organized Health Care Education/Training Program
DX: Z12.4 Encounter for screening for malignant neoplasm of cervix (principal)
CPT/HCPCS: 87624; G0123